=== PATIENT | male | born 2000 | race Two or more races ===

== ENCOUNTER 2023-09-17 03:37 | Emergency (ER) | payer OTHER ==
[~2023-09-17] VITALS: Ht 167.6 cm; Wt 108.9 kg
[2023-09-17] MEDS ORDERED: ZESTRIL2.5 MG (04:22)
[2023-09-17] MEDS ORDERED: ACETAMINOPHEN 500 MG GEL..CAP PO STA (04:37)
[2023-09-17] MEDS ORDERED: ONDANSETRON HCL 2 MG/ML VIAL IV STA (04:37)
[2023-09-17 04:54] LABS: PH,URINE 5.5 (5.0-8.0); URINE APPEARANCE Clear; URINE BILIRRUBIN Negative (NEGATIVE); URINE BLOOD Negative; URINE COLOR Yellow; URINE GLUCOSE Negative (NEGATIVE); URINE LEUKOCYTE Negative; URINE NITRATE Negative; URINE PROTEIN Negative (NEGATIVE); URINE UROBILINOGEN 0.2 E.U./dl
[2023-09-17 04:54] LABS: HEMATOCRIT 41.8 % (39.0-48.0); HEMOGLOBIN 14.3 g/dL (13-16.00); MEAN CELL VOLUME 84.7 fL (80.0-100.00); MEAN CORPUSCULAR HGB CONC 34.2 g/dl (32.0-36.0); PLATELET COUNT 305 K/uL (150-450); RED BLOOD COUNT 4.93 M/uL (4.00-6.00); RED CELL DISTRIBUTION WIDTH 13.5 % (11.5-14.5)
[2023-09-17 04:57] LABS: URINE BACTERIA 12.5 uL (0.0-1933); URINE RBC 2.1 uL (0.0-20.8); URINE WBC 2.9 uL (0.0-23.2)
[2023-09-17 05:01] LABS: URINE EPITHELIAL CELLS 1.3 uL (0.0-38.8)
[2023-09-17 05:09] LABS: ALBUMIN 4.2 gm/dL (3.4-5.0); BILIRUBIN TOTAL 1.14 mg/dL (0.3-1.2); CALCIUM 9.2 mg/dL (8.5-10.1); CREATININE SERUM 0.92 mg/dL (0.70-1.30); GFR 100.24; GLOBULINA 3.6 G/DL (2.4-3.5); TOTAL PROTEIN 7.8 gm/dL (6.4-8.2)
== END 2023-09-17 08:51 | disposition home or self-care (01) ==
LOC: ER 03:37
PROVIDERS: General Practice
DX: R51.9 Headache, unspecified (principal); R42 Dizziness and giddiness; I10 Essential (primary) hypertension